=== PATIENT | female | born 2000 | race Caucasian/White ===

== ENCOUNTER 2019-11-29 02:16 | Emergency (ER) | payer BC ==
[~2019-11-29] VITALS: Ht 165.1 cm; Wt 99.1 kg
[2019-11-29 04:56] VITALS: BP 117/68; PULSE 82; TEMP 98
== END 2019-11-29 05:08 | disposition home or self-care (01) ==
LOC: COL.ER 02:16
DX: S39.92XA Unspecified injury of lower back, initial encounter (principal); S39.91XA Unspecified injury of abdomen, initial encounter; S29.9XXA Unspecified injury of thorax, initial encounter; V89.2XXA Person injured in unspecified motor-vehicle accident, traffic, initial encounter
CPT/HCPCS: J1885

== ENCOUNTER 2019-12-27 18:16 | Emergency (ER) | payer BC ==
[~2019-12-27] VITALS: Ht 175.3 cm; Wt 100.0 kg
[~2019-12-27 18:16] MED LIST: FLEXERIL 1010 MG/TAB PO
[2019-12-27 18:27] VITALS: TEMP 98.2
[2019-12-27] MEDS ORDERED: DOXYCYCLINE 10100 MG PO (19:51)
[2019-12-27 19:58] VITALS: BP 120/73; PULSE 87
== END 2019-12-27 20:00 | disposition home or self-care (01) ==
LOC: COL.ER 18:16
DX: T63.301A Toxic effect of unspecified spider venom, accidental (unintentional), initial encounter (principal); X58.XXXA Exposure to other specified factors, initial encounter